=== PATIENT | female | born 1965 | race Caucasian/White ===

== ENCOUNTER 2022-10-07 09:14 | Outpatient (CLI) | payer OTHER, SELFPAY ==
--- NOTE | ~2022-10-07 | CT_ITS ---
EXAMINATION: CT LE LT wo con DATE: 10/07/2022 09:41 INDICATION: Primary osteoarthritis of the left knee for preoperative planning. TECHNIQUE: High resolution computed tomography (CT) of the left lower limb from the hip through the f oot was performed without intravenous contrast. Additional sagittal and coronal reconstructions were performed. Automated exposure control and iterative reconstruction technique were employed. The dose- length product was 1661.71 mGy-cm. COMPARISON: Left knee radiographs dated 07/09/2022 FINDINGS: Bone alignment is normal. No fracture. Tricompartmental osteoarthritis at the right knee, severe in t he medial compartment with eburnation and subarticular cystic changes at the anterior aspect medial t ibial plateau and anterior weightbearing medial femoral condyle. No left knee joint effusion. Mild os teoarthritis at the left knee. Bone island at the left calcaneus. Moderate-sized Achilles calcaneal s pur. Soft tissues are unremarkable. No pathologically enlarged left pelvic or inguinal lymphadenopath y. IMPRESSION: 1. Severe medial compartment predominant tricompartmental osteoarthritis at the left knee. Reviewed, dictated and finalized at location L. [facility] [employer] [facility] [employer]
[2022-10-07 10:58] LABS: Urine Cotinine NEGATIVE
[2022-10-07 12:29] LABS: Hematocrit 43.9 % (37.0-47.0); Hemoglobin 14.4 g/dL (12.0-15.0)
[2022-10-07 12:44] LABS: Albumin Level 4.5 g/dL (3.5-5.1); Estimated Glomerular Filt Rate > 60; Glucose 99 mg/dL (65-110)
[2022-10-07 14:13] LABS: Hemoglobin A1C 5.4 % (<5.7)
== END 2022-10-07 09:15 | disposition home or self-care (01) ==
PROVIDERS: PCP Internal Medicine; Visit Provider Orthopaedic Surgery
DX: M17.12 Unilateral primary osteoarthritis, left knee (principal); E78.5 Hyperlipidemia, unspecified; I10 Essential (primary) hypertension; Z79.899 Other long term (current) drug therapy
CPT/HCPCS: 73700; 80307; 82040; 82565; 82947; 83036; 85014; 85018